=== PATIENT | male | born 1980 | race Native Hawaiian/Other Pacific Islander ===

== ENCOUNTER 2017-01-19 09:58 | Emergency (ER) | payer OTHER ==
[~2017-01-19] VITALS: Ht 170.2 cm; Wt 78.0 kg
--- NOTE | 2017-01-19 11:12 | REP ---
Right knee series: Five views. History: Right knee injury. Findings: The lateral view demonstrates significant patella eyad. There is a dystrophic calcification along the course of the patellar tendon. There is indentation in the soft tissues inferior to the elevated patella and the findings are compatible with patellar tendon rupture. No fracture is seen. No joint effusion is evident. Impression: Findings compatible with disruption of the patellar tendon with patella eyad. A dystrophic calcification is seen along the course of the patellar tendon. No fracture is noted. Signed by Chris Ramirez MD 01/19/2017 12:39 P
[2017-01-19 12:02] LABS: BASO % 0.1 % (0.0-1.0); EOS # 0.1 K/mm3 (0.0-0.50); EOS % 0.5 % (0.0-3.0); LARGE UNSTAINED CELL # 0.1 K/mm3 (0.0-0.4); LARGE UNSTAINED CELL % 0.8 % (0.0-4.0); LYMPH # 0.9 K/mm3 (1.5-4.5); LYMPH % 8.1 % (24.0-44.0); MEAN CORPUSCULAR HEMOGLOBIN 31.7 pg (27.0-33.0); MEAN CORPUSCULAR HGB CONC 34.5 g/dl (32.0-36.5); MEAN CORPUSCULAR VOLUME 91.7 fl (80.0-96.0); MONO # 0.5 K/mm3 (0.0-0.8); MONO % 4.5 % (0.0-5.0); NEUTROPHILS # 9.8 K/mm3 (1.8-7.7); PLATELET COUNT, AUTOMATED 304 k/mm3 (150-450); RED CELL DISTRIBUTION WIDTH 12.2 % (11.5-14.5); WHITE BLOOD COUNT 11.4 K/mm3 (4.0-10.0)
[2017-01-19 12:24] LABS: ANION GAP 6 MEQ/L (8-16); BLOOD UREA NITROGEN 15 MG/DL (7-18); CALCIUM LEVEL 8.8 MG/DL (8.5-10.1); CARBON DIOXIDE LEVEL 29 MEQ/L (21-32); CHLORIDE LEVEL 101 MEQ/L (98-107); CREATININE FOR GFR 1.16 MG/DL (0.70-1.30); GLOMERULAR FILTRATION RATE > 60.0 (>60); GLUCOSE, FASTING 102 MG/DL (70-105); POTASSIUM SERUM 4.4 MEQ/L (3.5-5.1); SODIUM LEVEL 136 MEQ/L (136-145)
[2017-01-19 13:30] VITALS: BP 129/74
--- NOTE | 2017-01-19 19:01 | ER ---
DATE OF CONSULTATION: 01/19/2017 REASON FOR CONSULTATION: Right knee injury. 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 He was assisted by his comrades and transferred to [facility] where he was evaluated. I was called. His radiographs demonstrated a patella eyad and there was concern about a ligamentous injury or tendinous injury to his knee. I was called to see him for that. He otherwise is a very healthy male. No other injury. No complaints of pain or soreness other than his knee. He is otherwise healthy. No medications. No allergies. Previous surgeries are right shoulder surgery in [place]. REVIEW OF SYSTEMS: Otherwise unremarkable. PHYSICAL EXAMINATION: He is alert, pleasant male lying on his stretcher. His temperature is 98.1, blood pressure 128/75, oxygen saturation is 100% on room air. LUNGS: Clear to auscultation. HEART: Regular. I do not detect a murmur. EXTREMITIES: Right lower extremity revealed a markedly positive extensor lag with obvious high riding patella with some swelling and tenderness around the patellar tendon anteriorly. Collateral ligamentous examination, varus and valgus stress testing and AP stress testing, as well as Linda showed essentially a stable knee. Distally, he had good dorsiflexion, plantar flexion, strength of his ankle. Good palpable pulses -- posterior tibialis and dorsalis pedis. Normal sensation to light touch. Radiographs show no fractures over the right knee with obvious patella eyad. IMPRESSION: 1. Acute patellar tendon disruption. I would recommend a surgical repair of this area. I talked to him about this and he understands and would like to proceed. I talked about doing this does carry the risk of surgery, including infection, damage to nerves and blood vessels, anesthetic complications, amongst others. He understands that. We plan to proceed with operative repair. However, as it turns out, on his way here this morning at 9:[address] to the hospital, they fed him a cheeseburger and so he is not going to be nothing by mouth for another 8 hours. I actually called the operating room and there are several emergency add ons going late. I discussed this with the orthopedic surgeon, Dr. Reeder, who wants him to be seen over at the [facility] where he can see him and get him on the schedule for tomorrow. This was sorted out after I had already consented the patient to surgery, and so that would be the plan, and so Dr. Reeder is going to assume care through the [facility] and get him on the schedule probably tomorrow.
== END 2017-01-19 13:32 | disposition home or self-care (01) ==
LOC: M ED 10:51
DX: S83.203A Other tear of unspecified meniscus, current injury, right knee, initial encounter (principal); W22.8XXA Striking against or struck by other objects, initial encounter; Y92.89 Other specified places as the place of occurrence of the external cause; Y93.02 Activity, running; Y99.9 Unspecified external cause status